=== PATIENT | female | born 1990 | race Caucasian/White ===

== ENCOUNTER 2020-03-13 05:45 | Inpatient (IN) ==
--- NOTE | 2020-03-12 09:03 | History & Physical Report ---
Date of Service March 12, 2020 Assessment & Plan (1) Encounter for supervision of normal in multigravida, antepartum: (2) IUGR (intrauterine growth restriction): (3) Previous delivery affecting , antepartum: Patient ready for c/s in am. Risks alt and complications reviewed. Consent signed. She has wanted to but cx not favorable and therefore aware we would recommend c/s if no labor and would not recommend prolonging due to IUGR. Explained all to partner and pt and they verbalized understanding. History of Present Illness Chief Complaint: planned section Primary Care Provider: JAMIA PCP 29yo at 39wks tomorrow with EDC 03/20/20 with cc of planning admission tomorrow for planned c/s with history of IUGR. Patient transferred care from [place] and [place] late in due to relocation at 36wks. IUGR noted by us and testing initiated. Patient had prior c/s and wanted to have if labored and accepted consent. She denies sx of labor. She is here with partner. Allergies Allergy/AdvReac Type Severity Reaction Status Date / Time No Known Allergies Allergy Verified 03/12/20 08:47 Home Medications Home Medications Medication Instructions Recorded Confirmed Type multivitamin 1 tab PO DAILY 02/05/20 03/12/20 History Patient History Medical History (Updated 03/11/20 @ 12:31 by Angela Guo RN) No known health problems Surgical History History of low transverse section Family History Grandfather (Maternal) Myocardial infarction Father Diabetes Other Hypertension Social History (Updated 02/05/20 @ 14:03 by Beverly Harris) Smoking Status: Never smoker Second Hand Exposure: No; Hx Alcohol Use: No Hx Substance Use: No Preferred Language: Afghan Communication Ability: Effective Camp Coordinator Required: No Beliefs That Will Affect Care: None marital status: marital status details: Peña (29) [phone] Current Living Situation: Spouse Current Living Situation Comment: lives with spouse, son, current occupational status: unemployed Feels Safe at Home: Yes Review of Systems no rom, no vb, no ctx. +FM Physical Exam Constitutional: WD/WN, vitals as above Respiratory: normal respiratory effort, lungs clear to auscultation Cardiovascular: Rate/Rhythm: regular rate and regular rhythm Gastrointestinal (Abdomen): Percussion/Palpation: abdomen soft (gravid); abdomen nontender +FHTs Neurologic: grossly normal Psychiatric: A+Ox3, euthymic affect Genitourinary: Manual OB Exam: + cervical dilation 1 cm, + cervical effacement 50% and + station high Coding Level of Care Code None Diagnoses Encounter for supervision of normal in multigravida, antepartum Z34.80 IUGR (intrauterine growth restriction) Previous delivery affecting , antepartum O34.219
[~2020-03-13 05:45] MED LIST: LACTATED RINGER'S 1,000 ML IV SCH
[2020-03-13] MEDS ORDERED: CEFAZOLIN 2000MG 2,000 MG/15 ML SYR IV SCH (06:00)
[2020-03-13] MEDS ORDERED: CITRIC ACID/SODIUM CITRATE 15 ML UDC PO SCH (06:00)
[2020-03-13 07:02] LABS: Basophils # (auto) 0.03 K/uL (0-0.2); Basophils % (auto) 0.4 %; Eosinophils # (auto) 0.35 K/uL (0-0.5); Eosinophils % (auto) 4.8 %; Hematocrit (blood only) 30.4 % (37-47); Hemoglobin 10.3 g/dL (12.0-16.0); Immature Granulocytes # (auto) 0.02 K/uL (0.00-0.02); Immature Granulocytes % (auto) 0.3 %; Lymphocytes # (auto) 1.81 K/uL (1.2-3.4); Mean Corpuscular Hemoglobin 30.4 pg (25-34); Mean Corpuscular Hgb Conc 33.9 g/dL (32-36); Mean Corpuscular Volume 89.7 fL (80-100); Mean Platelet Volume 10.8 fL (7.4-10.4); Monocytes # (auto) 0.77 K/uL (0.11-0.59); Monocytes % (auto) 10.6 %; Neutrophils # (auto) 4.27 K/uL (1.4-6.5); Neutrophils % (auto) 58.9 %; Platelet Count 200 K/uL (130-400); RDW Coefficient of Variation 12.7 % (11.5-14.5); RDW Standard Deviation 40.8 fL (36.4-46.3); Red Blood Count 3.39 M/uL (4.2-5.4); White Blood Count 7.25 K/uL (4.8-10.8)
--- NOTE | 2020-03-13 07:30 | Anesthesiology Consultation ---
Date of Service March 13, 2020 Covid 19 negative today. Assessment & Plan Chart Review Chart Review: Acceptable Risk for Surgery and Patient NOT seen in Pre Admission Testing Consults Requested none ASA ASA2 Proposed Anesthesia Anesthesia Type: MAC Spinal Risk / Benefits Reviewed With: PT / POA / Parent / Guardian, Accepts Plan and Informed Consent Obtained History Surgery Operation Date: 03/13/20 07:30 Proposed Procedures p Section - Pamela Mcknight MD, FACOG Height/Weight Height: 5 ft 7 in Weight: 75.523 kg Allergies Allergy/AdvReac Type Severity Reaction Status Date / Time No Known Allergies Allergy Verified 03/13/20 05:59 Medications Home Medications Medication Instructions Recorded Confirmed Last Taken multivitamin 1 tab PO DAILY 02/05/20 03/13/20 03/12/20 16:00 NPO Date Last Intake of Fluids: 03/12/20 Time Last Intake of Fluids: 23:00 Date Last Intake of Solids: 03/12/20 Time Last Intake of Solids: 20:00 Past Medical History Medical History No known health problems Exercise / Class Metabolic Activity II 4-5 Yardwork/Stairs/Walk up hill Past Family History Family History Grandfather (Maternal) Myocardial infarction Father Diabetes Other Hypertension Past Surgical History Surgical History History of low transverse section 08/16/2018 [facility] prolapsed cord/breech 36weeks Past Anesthesia History No Hx of Anesthesia Complications and No Family Hx of Anesthesia Complications Social History Smoking Status: Never smoker Do You Dip or Chew Tobacco: No Hx Alcohol Use: No Hx Substance Use: No substance use type: does not use Review of Systems no chest pain or sob Physical Exam Vital Signs Last Vital Signs Temp 36.3 C L 03/13/20 06:16 Pulse 104 H 03/13/20 06:00 Resp 18 03/13/20 06:16 BP 108/63 03/13/20 06:00 ENMT Mouth: no TMJ abnormality Thyromental Distance: > or= 3.5 Finger Breadths Mallampati Class: II Neck normal visual inspection Respiratory normal respiratory effort Auscultation: lungs clear to auscultation bilaterally Cardiovascular Rate/Rhythm: regular rate and regular rhythm Musculoskeletal Spine: normal cervical ROM Neurologic moves all extremities Psychiatric Orientation: alert and oriented x 3 Testing Laboratory Results 03/13/20 06:53 Blood Type Cancelled 03/13/20 06:11 Antibody Screen Cancelled 03/13/20 06:11
[2020-03-13] MEDS ORDERED: NALOXONE HCL 0.4 MG/1 ML VIAL/CARP IV PRN (07:32)
[2020-03-13] MEDS ORDERED: MoRPHine SULFATE PF 1 MG/ML 10 ML AMP/VIAL INT SPINAL ONE (07:32)
[2020-03-13] MEDS ORDERED: NALOXONE HCL 1 MG in SODIUM CHLORIDE 0.9% 1000ML 1,000 ML IV PRN (07:32)
[2020-03-13] MEDS ORDERED: NALOXONE HCL 0.08 MG in SYRINGE 1.8 ML IV PRN (07:32)
[2020-03-13] MEDS ORDERED: ONDANSETRON INJ 2 MG/ML 2 ML VIAL IV PRN (07:32)
[2020-03-13] MEDS ORDERED: DiphenhydrAMINE HCL 50 MG/ML VIAL IV PRN (07:32)
[2020-03-13] MEDS ORDERED: ePHEDrine sulfate 50 MG/ML AMP IV PRN (07:32)
[2020-03-13] MEDS ORDERED: HYDROmorphone INJ 0.5 MG/0.5 ML SYR IV PRN (07:32)
[2020-03-13] MEDS ORDERED: LACTATED RINGER'S 500 ML IV PRN (07:32)
--- NOTE | 2020-03-13 07:35 | History & Physical Bridge Note ---
Date of Service March 13, 2020 History & Physical Bridge Note I have examined the patient, reviewed the History & Physical and in the interval since the performance of the History & Physical I have noted the following changes of clinical significance: no changes noted
[2020-03-13] MEDS ORDERED: fentaNYL citrate 100 MCG/2 ML VIAL ONE (07:36)
[2020-03-13] MEDS ORDERED: MoRPHine SULFATE PF 1 MG/ML 10 ML AMP/VIAL ONE (07:36)
[2020-03-13] MEDS ORDERED: OXYTOCIN 10 UNITS/ML VIAL ONE ×2 (07:41→08:17)
[2020-03-13] MEDS ORDERED: NO NARCOTICS OR SEDATIVES SCH (07:45)
[2020-03-13] MEDS ORDERED: DC INTRASPINAL MORPHINE SCH (07:45)
[2020-03-13] MEDS ORDERED: SODIUM CHLORIDE 0.9% 1000ML 1,000 ML IV SCH (07:45)
[2020-03-13] MEDS ORDERED: PHENYLEPHRINE 100MCG/ML 5ML SYR ONE (07:59)
[2020-03-13] MEDS ORDERED: ONDANSETRON INJ 2 MG/ML 2 ML VIAL ONE (08:06)
--- NOTE | 2020-03-13 08:46 | Post Operative Brief Note ---
PG Immediate Post Op with CF Date of Surgery March 13, 2020 Pre & Post Diagnosis Operation Date: 03/13/20 07:30 1. 39 week iup 2. IUGR 3. Prior section, desires repeat section I identified the patient and participated in the time-out.: Yes Procedure Operation Date: 03/13/20 07:30 Actual Procedures Repeat Low Transverse Section Surgeon Pamela Mcknight MD, FACOG Pipelaying Fitter Humera Estimated Blood Loss 600 Findings Consistent with Post-Op Diagnosis (viable female apgars 9,9. normal uterus tubes and ovaries bilaterally) Fluids 2600 Specimens Specimen Description: placenta-exam cord blood Drains Goldman Catheter (inserted without difficulty, clear yellow urine) Anesthesia Type Spinal Complications none Disposition Accompanied Patient To Recovery: No Disposition: L&D
[2020-03-13] MEDS ORDERED: BENZOCAINE 20% AER SPR 82.5 GM CAN EXT PRN (08:52)
[2020-03-13] MEDS ORDERED: HYDROCORTISONE ACETATE 25 MG SUPP PR PRN (08:52)
[2020-03-13] MEDS ORDERED: SUPERCREAM 0.870% 15 GM JAR EXT PRN (08:52)
[2020-03-13] MEDS ORDERED: DIPHTHERIA/TETANUS/PERTUSSIS 0.5 ML SYR/VIAL IM ONE (08:52)
[2020-03-13] MEDS ORDERED: MAGNESIUM HYDROXIDE SUSP 30 ML UDC PO PRN (08:52)
[2020-03-13] MEDS ORDERED: OXYTOCIN 20 UNITS in LACTATED RINGER'S 1,000 ML IV SCH (09:00)
[2020-03-13] MEDS ORDERED: LACTATED RINGER'S 1,000 ML IV SCH (09:00)
--- NOTE | 2020-03-13 09:00 | Operative Report ---
PG Post Operative Report Pre & Post Diagnosis Operation Date: 03/13/20 07:30 1. 39+weeks iup 2. IUGR 3. Prior section, desires repeat section I identified the patient and participated in the time-out.: Yes Procedure Operation Date: 03/13/20 07:30 Actual Procedures Repeat Low Transverse Section Surgeon Pamela Mcknight MD, FACOG Behavioral Health Aide Humera Estimated Blood Loss 600 Findings Consistent with Post-Op Diagnosis (viable female apgars 9,9. normal uterus tubes and ovaries bilaterally) Fluids 2600 Specimens placenta, cord blood Drains moise Anesthesia Type Spinal Complications none Disposition Accompanied Patient To Recovery: No Disposition: L&D Indications 29yo at 39 wks stephen presents to for planned section, with prior history for section and iugr. She was transfer of care at 36wks from [place]. She notes no bleeding or rupture of membranes. Good movement and no contractions. She had wanted to try for but no labor thus far and our recommendations were for delivery after 39weeks due to 36wk EFW 2% meeting criteria for IUGR. She is agreeable. Description of Procedure The patient was taken to the operating room and identified. After adequate anesthesia was obtained, she was placed in the supine position with a leftward tilt on the operating table and prepped and draped in the usual sterile fashion. A moise catheter had already been placed. The knife was used to create a Pfannensteil skin incision that was carried down to the underlying layer of fascia. The fascia was nicked in the midline and this opening was extended laterally using Quiñones scissors. Danial clamps were placed on the superior and i nferior aspect of the fascial incision tenting it upward and the underlying rectus muscles were dissected off the overlying fascia both sharply and bluntly using Quiñones scissors. The rectus muscles were bluntly in the midline. The peritoneal cavity was bluntly entered into. This opening was stretched. The bladder blade was placed. The vesicouterine peritoneum was elevated and opened up into and the bladder flap was created digitally and bladder blade was replaced. The knife was used to create a hysterotomy and this opening was stretched. The operators hand was placed through the hysterotomy and the bladder blade was removed. The head was elevated and flexed and with fundal pressure the head was delivered. The shoulders and body were rapidly delivered. The cord was clamped and cut and the 's mouth and nares were bulb suction. The was handed off to the awaiting pediatricians. Cord blood was obtained. The placenta was manually expressed. The uterus was exteriorized and cleared of all clots and debris. Dilute IV Pitocin was begun. The uterine tone was improving. The hysterotomy was closed in a running interlocking fashion using 0 Vicryl followed by a second imbricating layer of 0 Vicryl. The hysterotomy was not hemostatic in midline and therefore 2 additional figure of eight sutures of 0-vicryl were placed for excellent hemostasis. The pelvis was irrigated. The uterus was returned to the abdomen. The gutters were cleared of all clots and debris. The hysterotomy was reinspected and noted to be hemostatic. The fascia was then closed in running fashion using 0 Vicryl. The subcutaneous fat was copiously irrigated and reapproximated using 2-0 chromic. The skin was closed in a subcuticular fashion using 4-0 Vicryl. At this point the procedure was terminated. The patient was transferred to the recovery room in stable condition. All sponge, lap and needle counts are correct x2. I attest to the content of the Intraoperative Record and any orders documented therein. Any exceptions are noted below. OB Procedure charges OB Charges 06226 C/S
--- NOTE | 2020-03-13 09:02 | Anesthesiology Progress Note ---
Date of Service March 13, 2020 Anesthesia Post Procedure Vital Signs Vital Signs: Temp Pulse Resp BP Pulse Ox 03/13/20 09:00 70 100 03/13/20 08:55 67 116/67 97 03/13/20 07:37 78 97 03/13/20 07:32 79 99 03/13/20 06:16 36.3 C L 18 03/13/20 06:00 36.3 C L 104 H 18 108/63 Transfer of Care Handoff Completed per policy Notes Mental Status: alert / awake / arousable Patient Amnestic to Procedure: Yes Nausea / Vomiting: adequately controlled Pain: adequately controlled Airway Patency, RR, SpO2: stable & adequate BP & HR: stable & adequate Hydration State: stable & adequate Neuraxial Anesthesia: was administered and sensory block is resolving Anesthetic Complications: no major complications apparent and Pt Satisfied with anesthetic care
[2020-03-13] MEDS: SIMETHICONE 80 MG CHEW PO SCH ×2 (16:33→21:21)
[2020-03-13] MEDS: KETOROLAC 30 MG/ML VIAL IV PRN ×2 (16:34→23:45)
[2020-03-13] MEDS: DOCUSATE SODIUM 100 MG CAP PO SCH (21:21)
[2020-03-14] MEDS ORDERED: KETOROLAC 30 MG/ML VIAL IV PRN (01:34)
[2020-03-14] MEDS ORDERED: PROMETHAZINE HCL 25 MG in SODIUM CHLORIDE 0.9% 50 ML IV PRN (01:34)
[2020-03-14] MEDS ORDERED: ONDANSETRON INJ 2 MG/ML 2 ML VIAL IV PRN (01:34)
[2020-03-14] MEDS ORDERED: OXYCODONE/ACETAMINOPHEN 5mg/325mg TAB PO PRN (01:34)
[2020-03-14] MEDS ORDERED: DiphenhydrAMINE HCL 50 MG/ML VIAL IV PRN (01:34)
[2020-03-14] MEDS: IBUPROFEN 600 MG TAB PO PRN ×3 (06:24→20:28)
[2020-03-14 06:41] LABS: Basophils # (auto) 0.02 K/uL (0-0.2); Basophils % (auto) 0.2 %; Eosinophils # (auto) 0.32 K/uL (0-0.5); Eosinophils % (auto) 3.3 %; Hematocrit (blood only) 30.1 % (37-47); Immature Granulocytes # (auto) 0.01 K/uL (0.00-0.02); Immature Granulocytes % (auto) 0.1 %; Lymphocytes # (auto) 1.95 K/uL (1.2-3.4); Lymphocytes % (auto) 20.3 %; Mean Corpuscular Hemoglobin 29.9 pg (25-34); Mean Corpuscular Hgb Conc 33.2 g/dL (32-36); Mean Corpuscular Volume 90.1 fL (80-100); Mean Platelet Volume 10.8 fL (7.4-10.4); Monocytes # (auto) 0.79 K/uL (0.11-0.59); Monocytes % (auto) 8.2 %; Neutrophils # (auto) 6.51 K/uL (1.4-6.5); Neutrophils % (auto) 67.9 %; Platelet Count 184 K/uL (130-400); RDW Coefficient of Variation 12.8 % (11.5-14.5); RDW Standard Deviation 41.9 fL (36.4-46.3); Red Blood Count 3.34 M/uL (4.2-5.4)
--- NOTE | 2020-03-14 07:30 | Obstetrical Progress Note ---
Date of Service <Hi Rodriguez MD - Last Filed: 03/14/20 07:34> March 14, 2020 Assessment & Plan <Hi Rodriguez MD - Last Filed: 03/14/20 07:34> (1) delivery delivered: Tammy Felder is a 29yo on L&D after an elective section at 39wga, POD#1. - PNL: Rh pos, RI, GBS neg, COVID neg - Feels well today. Eating well, voiding well, ambulating well. - Pain well controlled with ibuprofen 600mg Q4H PRN - Routine care -- OOB, ambulation, diet progression as tolerated - After discharge will have 6 week follow-up with Dr. Mcknight. Subjective <Hi Rodriguez MD - Last Filed: 03/14/20 07:34> Tammy Felder is a 20 y/o female who is POD #1 following elective delivery at 39 weeks. She reports feeling well overall this morning. Moderate abdominal cramping and 6/10 pain well managed on analgesics. She is hoping to avoid using opioid analgesia. Voiding well. Tolerating meals overnight without difficulty. Patient has been able to ambulate some. She is passing gas, no bowel movement yet. Has persistent lochia with some improvement this morning. Currently . Review of Systems Denies fever or chills. Denies shortness of breath or cough. Denies chest pain. Denies breast pain. Denies dysuria. Denies leg pain or leg swelling. Denies headache or changes in vision. Physical Exam <Hi Rodriguez MD - Last Filed: 03/14/20 07:34> General: Alert, oriented. No acute distress. Cardiac: Regular rate and rhythm. No murmurs. Respiratory: Clear to auscultation bilaterally a/p, no wheezes/rales/rhonchi. No increased work of breathing. Symmetrical chest rise. No respiratory distress. Abdomen: Soft, nontender, nondistended. Bowel sounds present. Uterus: Uterine fundus firm, palpable 3 cm below umbilicus. Surgical scar clean and healing well. Lower Extremities: No lower extremity edema or swelling. No deep calf pain. Ahsan's negative bilaterally. Results & Data ([facility]) <Hi Rodriguez MD - Last Filed: 03/14/20 07:34> Vital Signs (Past 12 Hours) Vital Signs Temp Pulse Resp BP Pulse Ox 03/14/20 04:00 36.8 C 70 16 113/67 97 03/14/20 01:30 20 99 03/14/20 00:10 18 100 03/13/20 23:35 37.2 C 66 16 105/65 100 03/13/20 22:35 18 99 03/13/20 21:21 18 98 03/13/20 20:00 18 100 03/13/20 19:40 37.2 C 69 20 109/70 100 <Pamela Mcknight MD, FACOG - Last Filed: 03/14/20 07:53> Co-Signing Physician Notes Resident Physician Supervision Note: I was present with Dr. Lilliana Rodriguez during the history and exam. I discussed the case with the resident and agree with the findings and plan as documented in the note. Any exceptions or clarifications are listed here: pt doing well postop. eating, voiding, ambulating. pain control adequate. af vss hgb noted. incision c/d/i. ff 1 down nt. ext nt calves. pod #1 s/p RLTSC. rh pos, ri, routine care. breast feeding. Documented By: Pamela Mcknight MD, FACOG Resident Activity Tracking <Hi Rodriguez MD - Last Filed: 03/14/20 07:34> Resident Involvement: Resident Care Provided Care Provided: OB Delivery
[2020-03-14] MEDS: ACETAMINOPHEN 325 MG TAB PO PRN ×3 (08:26→23:14)
[2020-03-14] MEDS: FERROUS SULFATE 325 MG TAB PO SCH (08:27)
[2020-03-14] MEDS: DOCUSATE SODIUM 100 MG CAP PO SCH ×2 (08:27→20:27)
[2020-03-14] MEDS: PRENATAL VITAMIN 1 TAB PO SCH ×2 (08:27→08:30)
[2020-03-14] MEDS: SIMETHICONE 80 MG CHEW PO SCH ×4 (08:28→20:27)
[2020-03-15] MEDS: IBUPROFEN 600 MG TAB PO PRN (05:46)
[2020-03-15 06:11] LABS: Hemoglobin 9.5 g/dL (12.0-16.0)
[2020-03-15] MEDS: PRENATAL VITAMIN 1 TAB PO SCH ×2 (07:47→07:50)
[2020-03-15] MEDS: DOCUSATE SODIUM 100 MG CAP PO SCH (07:47)
[2020-03-15] MEDS: ACETAMINOPHEN 325 MG TAB PO PRN (07:47)
[2020-03-15] MEDS: SIMETHICONE 80 MG CHEW PO SCH (07:47)
[2020-03-15] MEDS: FERROUS SULFATE 325 MG TAB PO SCH (07:47)
--- NOTE | 2020-03-15 08:20 | Obstetrical Progress Note ---
Date of Service March 15, 2020 Assessment & Plan (1) delivery delivered: POD#2 doing well. Discussed discharge - instructions reviewed, followup in office 6-8 weeks for visit. OK to come to office in 1-2 weeks for incision check. Discussed depression - she was tearful yesterday, but per her and doing better today. Reviewed with them to please call office if she feels any worsening depression symptoms. Rx breast pump. Prescription for percocet to [facility]. Subjective Ambulation: ambulating normally Voiding: no voiding problems Diet Tolerance:: regular diet Lochia:: Moderate Feeding Type:: breast feeding POD#2. Overall doing well. Is concerned about incision - has had some bright red oozing from middle/left of incision, has been using a shama pad inside underwear. Review of Systems All systems reviewed & are unremarkable except as noted in HPI & below Physical Exam Incision is clean/dry/intact. No palpable hematoma, and not able to express further blood from incision during exam. Appears well-approximated. Constitutional WD/WN, vitals as above no acute distress Respiratory normal respiratory effort Cardiovascular Rate/Rhythm: regular rate and regular rhythm Gastrointestinal (Abdomen) Inspection/Auscultation: abdomen normal to inspection; abdomen not distended Percussion/Palpation: abdomen soft Genitourinary OB Exam Abdomen: + fundal height Fundus: + firm; not tender Results & Data ([facility]) Vital Signs (Past 12 Hours) Vital Signs Temp Pulse Resp BP 03/15/20 00:00 36.7 C 60 18 111/66
--- NOTE | 2020-03-16 07:56 | Discharge Summary ---
Date of Service Date of admission: March 13, 2020 Date of discharge: March 15, 2020 Admission HPI Per Admitting Provider 29yo at 39wks tomorrow with EDC 03/20/20 with cc of planning admission tomorrow for planned c/s with history of IUGR. Patient transferred care from [place] and [place] late in due to relocation at 36wks. IUGR noted by u/s and testing initiated. Patient had prior c/s and wanted to have if labored and accepted consent. She denies sx of labor. She is here with partner and given no labor, ready to proceed with planned section. Discharge Data Consultations 03/13/20 05:43 Consult Anesthesiology Stat Procedures Performed Operation Date: 03/13/20 07:30 Actual Procedures Repeat Low Transverse Section Hospital Course (1) Encounter for supervision of normal in multigravida, antepartum: (2) IUGR (intrauterine growth restriction): (3) Previous delivery affecting , antepartum: The patient underwent the above stated procedure without incident and her postoperative course and recovery was uncomplicated. On her postoperative day #2 she was tolerating a regular diet, voiding spontaneously, ambulating without problem and was using oral meds for adequate pain control. Her postoperative hemoglobin was 9.5. She was given written and verbal discharge instructions and told to followup in office at 6wks. She was given appropriate pain medicine prescriptions. Coding Level of Care Code None Diagnoses Encounter for supervision of normal in multigravida, antepartum Z34.80 IUGR (intrauterine growth restriction) Previous delivery affecting , antepartum O34.219
== END 2020-03-15 14:40 | disposition home or self-care (01) | DRG 788 ==
LOC: ASU 05:45 → 4S1 05:49 → 4S2 11:25